=== PATIENT | female | born 1965 | race Caucasian/White ===

== ENCOUNTER → 2016-12-01 | Outpatient (CLI) | payer BC ==
[~2016-12-01] MED LIST: CIPR-255 PO; LEVO75TA5 PO
--- NOTE | 2016-12-01 17:00 | MAMMOGRAPHY REPORT ---
BILATERAL DIGITAL SCREENING MAMMOGRAM TOMOSYNTHESIS WITH CAD: 12/01/2016 TECHNIQUE: Breast tomosynthesis in addition to standard 2D mammography was performed. Current study was also evaluated with a Computer Aided Detection (CAD) system. COMPARISON: Comparison is made to exams dated: 11/28/2015 mammogram, 11/27/2014 mammogram, 11/23/2012 yunier mogram, 11/26/2013 mammogram, 02/08/2011 mammogram, and 02/05/2010 mammogram - [facility]. BREAST COMPOSITION: There are scattered areas of fibroglandular density in both breasts. FINDINGS: No suspicious masses, calcifications, or areas of architectural distortion are noted in e ither breast. There has been no significant interval change compared to prior exams. IMPRESSION: ACR BI-RADS CATEGORY 1: NEGATIVE There is no mammographic evidence of malignancy. A 1 year screening mammogram is recommended. The p atient will receive written notification of the results. Approximately 10% of breast cancers are not detected with mammography. A negative mammographic repor t should not delay biopsy if a clinically suggestive mass is present. Awilda Mandel M.D. /:12/01/2016 15:51:14 Child Care Education Coordinator: Kat DRAKE)(Irene), [facility] letter sent: Normal 1/2 BI-RADS Code: ACR BI-RADS Category 1: Negative
== END | disposition home or self-care (01) ==
LOC: C.MAMM 15:25
PROVIDERS: ATTEND Obstetrics & Gynecology
DX: Z12.31 Encounter for screening mammogram for malignant neoplasm of breast (principal)

== ENCOUNTER → 2016-12-25 | Outpatient (CLI) | payer BC ==
[2016-12-25 09:10] LABS: CHOLESTEROL/HDL RATIO 3.3; THYROID STIMULATING HORMONE 3.13 uIu/ml (0.300-4.500)
== END | disposition home or self-care (01) ==
LOC: C.LAB 07:13
DX: Z13.1 Encounter for screening for diabetes mellitus (principal); Z13.220 Encounter for screening for lipoid disorders; E03.9 Hypothyroidism, unspecified

== ENCOUNTER → 2017-01-10 | Outpatient (CLI) | payer BC ==
[2017-01-10 15:54] LABS: LYME DISEASE AB IGG NEG (NEG); LYME DISEASE AB IGM NEG (NEG)
== END | disposition home or self-care (01) ==
LOC: C.LAB1850 13:21
DX: R42 Dizziness and giddiness (principal)

== ENCOUNTER → 2017-04-25 | Outpatient (CLI) | payer BC | END | disposition home or self-care (01) | LOC: C.PAPS 10:08 | PROVIDERS: ATTEND Obstetrics & Gynecology | DX: Z01.419 Encounter for gynecological examination (general) (routine) without abnormal findings (principal) ==

== ENCOUNTER 2017-06-11 20:14 | Emergency (ER) | payer BC ==
[~2017-06-11] VITALS: Ht 160 cm; Wt 70.6 kg
[2017-06-11 20:18] VITALS: TEMP 36.8; Ht 160 cm; Wt 70.6 kg
[2017-06-11] MEDS ORDERED: DIPHTHERIA/TETANUS/PERTUSSIS 0.5 ML SYR/VIAL IM. ONE (20:45)
[2017-06-11] MEDS ORDERED: LEVO75TA5 PO (20:46)
[2017-06-11] MEDS ORDERED: CIPR-255 PO (20:56)
[2017-06-11] MEDS ORDERED: CIPROFLOXACIN 500MG HOME PACK PO ONE (21:00)
[2017-06-11 21:06] VITALS: BP 128/72; PULSE 74; O2SAT 98
--- NOTE | 2017-06-11 21:10 | EMERGENCY ROOM VISIT NOTE ---
ED Visit Note First contact with patient: 20:23 CHIEF COMPLAINT: Puncture wound of the left foot HISTORY OF PRESENT ILLNESS: This 51-year-old female patient stepped on a deuce nail yesterday afternoon puncturing the bottom of her left foot. The area is mildly painful. The patient doesn't think there is anything in the wound, but comes to the hospital for a tetanus shot. Her accompanies her today. It did go through her flip-flop. She denies any numbness or tingling. Her last tetanus was 7 years ago. I don't believe the nail penetrated very far into her foot. She denies any numbness or tingling. She does note some altered sensation in her toes. She has been ambulatory. REVIEW OF SYSTEMS: GENERAL: No fever or chills, easy fatigue, loss of appetite, or significant weight change. NEUROLOGICAL: No headache, change in mental status, weakness, numbness, or dizziness. PMH: Significant for hypothyroidism Previous surgeries: None Allergies: NKDA Current medications: Levothyroxine Family history: Significant for breast cancer. Parents are living. SOCIAL HISTORY: Patient lives at home with her . Employed. No tobacco use, occasional EtOH use. PHYSICAL EXAM: Vital Signs: Reviewed Nurse's notes. Afebrile. Filed in patient 's chart. General: Well-developed, well-nourished, middle-aged white female, in no acute distress. Sitting on a bed. Alert and oriented. Skin: There is a small puncture wound on the plantar aspect of the left mid foot. No foreign material is seen in the wound. Scab is present. The epidermis was lifted off the puncture site and the base of the wound inspected. No foreign material could be seen there. The area was not particularly tender. Minor swelling. No active drainage. Musculoskeletal: Patient has no discomfort with palpation over the dorsum of her foot. Intact motor function to her toes and ankle. Strength is normal. Neurologic: Gross sensation is intact across all aspects of the foot and toes by soft touch. Peripheral pulses are 2+. Capillary refill is equal for the toes. EMERGENCY DEPARTMENT COURSE: Tetanus immunization was given using Adacel. Skin was cleansed with alcohol and the puncture site was irrigated using 50 mL normal sterile saline under jet spray lavage. Antibiotic ointment and pressure bandage were applied. DIAGNOSIS: Puncture wound of the left foot DISCHARGE INSTRUCTIONS: Patient and her were educated regarding today' s findings. Conservative care measures were discussed. Because the object was a deuce nail and it did go through her shoe, she was placed on Cipro 500 mg twice a day 7 days. Home pack and prescriptions were provided. Observe the area closely for signs of infection such as redness, swelling, increasing pain, or drainage. Return here or go to your own doctor if any of these occur for consideration of antibiotic treatment. Continue to keep it clean with soap and water and apply antibiotic ointment until fully healed. Current/Historical Medications Scheduled Ciprofloxacin Hcl (Cipro), 500 MG PO BID Levothyroxine Sodium (Levothyroxine Sodium), 1 TAB PO DAILY Allergies Coded Allergies: No Known Allergies (Verified , 06/11/17) Vital Signs Date Time Temp Pulse Resp B/P (MAP) Pulse Ox O2 Delivery O2 Flow Rate FiO2 06/11/17 20:18 36.8 84 18 147/94 96 Room Air Departure Information Impression Primary Impression: Puncture wound of foot, left Dispostion Home / Self-Care Prescriptions Ciprofloxacin Hcl (CIPRO) 500 Mg Tab 500 MG PO BID for 7 Days, #14 TAB Prov: Adam Lopez,P.A. 06/11/17 Forms HOME CARE DOCUMENTATION FORM, MOTRIN USE, TYLENOL USE, IMPORTANT VISIT INFORMATION Patient Instructions My [facility] Additional Instructions Tylenol and Motrin every 6 hours as needed for discomfort Clean the wound daily with soap and water and cover with antibiotic ointment until healed Return to the ED or see your PCP for follow-up if signs of infection develop, including redness, streaking, or unusual drainage Cipro one pill twice a day 7 days
== END 2017-06-11 21:08 | disposition home or self-care (01) ==
LOC: C.EDB 20:15 → C.EDD 21:08
DX: S91.332A Puncture wound without foreign body, left foot, initial encounter (principal); W22.09XA Striking against other stationary object, initial encounter; Z23 Encounter for immunization; E03.9 Hypothyroidism, unspecified; Z79.899 Other long term (current) drug therapy; Z80.3 Family history of malignant neoplasm of breast

== ENCOUNTER → 2017-12-05 | Outpatient (CLI) | payer BC ==
--- NOTE | 2017-12-06 07:53 | MAMMOGRAPHY REPORT ---
BILATERAL DIGITAL SCREENING MAMMOGRAM TOMOSYNTHESIS WITH CAD: 12/05/2017 CLINICAL HISTORY: Routine screening. Patient has no complaints. TECHNIQUE: Breast tomosynthesis in addition to standard 2D mammography was performed. Current study was also evaluated with a Computer Aided Detection (CAD) system. COMPARISON: Comparison is made to exams dated: 12/01/2016 mammogram, 11/28/2015 mammogram, 11/27/2014 yunier mogram, 11/26/2013 mammogram, 11/23/2012 mammogram, and 02/08/2011 mammogram - [facility] BREAST COMPOSITION: There are scattered areas of fibroglandular density in both breasts. FINDINGS: The parenchymal pattern is unchanged. No developing mass, architectural distortion or clus ter of suspicious microcalcifications is seen in either breast. IMPRESSION: ACR BI-RADS CATEGORY 2: BENIGN There is no mammographic evidence of malignancy. A 1 year screening mammogram is recommended. The pa tient will receive written notification of the results. Approximately 10% of breast cancers are not detected with mammography. A negative mammographic report should not delay biopsy if a clinically suggestive mass is present. Myra López M.D. ay/:12/05/2017 15:38:54 Direct Entry Midwife: Juanita RIVERS(Charlene)(Irene)([place]), [facility] letter sent: Normal 1/2 BI-RADS Code: ACR BI-RADS Category 2: Benign
== END | disposition home or self-care (01) ==
LOC: C.MAMM 15:20
DX: Z12.31 Encounter for screening mammogram for malignant neoplasm of breast (principal)